=== PATIENT | female | born 1960 | race Caucasian/White ===

== ENCOUNTER 2022-07-06 13:00 | Outpatient (RCR) | payer BC, SELFPAY | END 2022-09-16 08:55 | disposition home or self-care (01) | LOC: HO.PTCHIC 13:00 | PROVIDERS: PCP Advanced Practice Midwife; Visit Provider Orthopaedic Surgery | DX: Z98.890 Other specified postprocedural states (principal) | CPT/HCPCS: 97014; 97110; 97140; 97162; 97530 ==